=== PATIENT | female | born 1940 | race Caucasian/White ===

== ENCOUNTER 2016-07-31 08:07 | Day surgery (SDC) | payer MEDICARE ==
[~2016-07-31] VITALS: Ht 167.6 cm; Wt 75.0 kg
[~2016-07-31 08:07] MED LIST: ASPI325T32 PO; CYAN1TAB42 PO; CYCL1DRO OP; FLAX100038 PO; GLUC-123 PO; KEN25CR EXT; KETO5DRO60 OP; KLO1T PO; LEVO50TA83 PO; MULT-1018 PO; OMEP40CA36 PO; PRE625 PO; SERT25TA6 PO; SIMV20TA4 PO; TRIA1CAP5 PO; [UNRECOGNIZED DRUG - CODE] PO
[2016-07-31] MEDS ORDERED: Dexamethasone 4 mg/mL Inj ONE (08:08)
[2016-07-31] MEDS ORDERED: Propofol 10,000 mCg/mL 20 mL Inj ONE (08:08)
[2016-07-31] MEDS ORDERED: fentaNYL-PF 50 mCg/mL 2 mL Inj ONE (08:08)
[2016-07-31] MEDS ORDERED: Ondansetron 2 mg/mL 2 mL Inj ONE (08:08)
[2016-07-31] MEDS: Lactated Ringer's 1,000 ML IV SCH ×2 (08:16→10:03)
[2016-07-31 08:36] VITALS: BP 117/63; PULSE 56; RESP 15; O2SAT 94
[2016-07-31] MEDS ORDERED: HYDROcodone-APAP 5-325 mg Tablet PO PRN (09:25)
--- NOTE | 2016-07-31 10:03 | PCM.HPANE ---
Patient Data Date of Service: Jul 31, 2016 Surgeon Admitting Provider: Attending Provider:Ye Mena DO Primary Care Physician:Carine Murrell MD Other Provider:Berna West Anesthesia Reason for Visit Left Forearm Soft Tissue Mass Ht/WT & BMI Height (Feet): 5 Height (Inches): 6 Weight (Kilograms): 75 Body Mass Index 26.00 Allergies Coded Allergies: Sulfa (Sulfonamide Antibiotics) (Verified Allergy, Intermediate, HIVES, 06/29/15) Past Anesthesia History Anesthesia History: Denies:: Abnormal Airway, Anesthesia Reactions, Difficult Intubation, Fam Anesthesia Reaction, Fam Malignant Hypertherm, Malignant Hyperthermia Diabetes History Hx Diabetes?: No MRSA MRSA: No Medications Blood Thinner: Aspirin Hypertension Medication: Yes Home Meds Incl Beta Thi: Yes Date Beta Thi Taken: Jul 31, 2016 Time Beta Thi Taken: 0700 Reported Medications Triamterene/HCTZ 37.5-25 mg 1 Each Capsule0.5 PO DAILY Ref 0 07/27/16 Triamcinolone Acet (Triamcinolone Acetonide Cream)1 Applic/0.25 Gm Cr1 Applic EXT BID PRN skin irritation #60 GM Ref 0 07/27/16 Levothyroxine (Synthroid)50 Mcg Mdsgsm48 Mcg PO DAILY Ref 0 07/27/16 Simvastatin 20 Mg Qeuedk65 Mg PO HS Ref 0 07/27/16 Sertraline HCl (Sertraline)25 Mg Zghfvx84 Mg PO DAILY 30 Days Ref 0 07/27/16 Cyclosporine (Restasis)1 Each Droperette2 Each OP DAILY 07/27/16 Estrogens Conjugated (Premarin)0.625 Mg Tablet0.625 Mg PO Q2DAY 30 Days Ref 0 07/27/16 Omeprazole 40 Mg Capsule.dr40 Mg PO DAILY Ref 0 07/27/16 Multivitamin (Multi Vitamin Daily)1 Each Tablet1 Each PO DAILY 30 Days Ref 0 07/27/16 Ketotifen Fumarate 5 Ml Drops5 Ml OP BID PRN allergy sx 07/27/16 Propranolol ER (Inderal LA)160 Mg Jjqknto625 Mg PO DAILY 07/27/16 Gluc/Jeremiah-MSM#2/C/D3/Lalo/Born (Pmkaejdtfs-Eeclnbrvflc-ELQ Tab)1 Each Tablet1 Each PO DAILY 07/27/16 Cyanocobalamin/Folic Acid (Vitamin H66-Riyor Acid Tablet)1 Each Tablet1 Each PO DAILY 07/27/16 Flaxseed Oil ([place]-3 Flaxseed Oil)1,000 Mg Capsule1,000 Mg PO DAILY 07/27/16 Clonazepam 1 Mg Tablet1 Mg PO HS Ref 0 07/27/16 Aspirin 325 Mg Tpfdlz544 Mg PO DAILY #1 BOTTLE 07/27/16 Discontinued Reported Medications [eye drops] No Conflict CheckUnknown Dose OP DAILY 06/30/14 Triamterene/HCTZ 37.5-25 mg 1 Each Capsule1 Each PO DAILY 30 Days Ref 0 06/30/14 Cyanocobalamin/Folic Acid (Vitamin F06-Vsven Acid Tablet)1 Each Tablet1 Each PO DAILY 06/29/14 Triamcinolone Acetonide 60 Ml Lotion1 Applic TOP BID #60 ML Ref 0 06/29/14 Levothyroxine (Synthroid)50 Mcg Sxdodg08 Mcg PO DAILY 30 Days Ref 0 06/29/14 Simvastatin 20 Mg Yvfxik29 Mg PO HS 30 Days Ref 0 06/29/14 Cyclosporine (Restasis)1 Each Droperette2 Each OP BID 06/29/14 Estrogens Conjugated (Premarin)0.625 Mg Tablet0.625 Mg PO DAILY 30 Days Ref 0 06/29/14 Omeprazole (Prilosec)40 Mg Capsule.dr40 Mg PO DAILY 30 Days Ref 0 06/29/14 Multivitamin with Minerals (Multiple Vitamin)1 Each Tablet1 Each PO DAILY 06/29/14 Propranolol ER (Inderal LA)80 Mg Cap.sa.69d744 Mg PO DAILY 60 Days Ref 0 06/29/14 Gluc Rivera/Chondro Rivera A/Vit C/Mn (Glucosamine Chondroitin Tab)1 Each Tablet1 Each PO DAILY 06/29/14 Flaxseed (Flaxseed Oil)1,000 Mg Capsule1,000 Mg PO DAILY 06/29/14 Clonazepam 1 Mg Tab1 Mg PO HS PRN For Anxiety 30 Days Ref 0 06/29/14 Aspirin 325 Mg Tablet.dr325 Mg PO DAILY #1 BOTTLE Ref 0 06/29/14 Discontinued Scripts Clonazepam 1 Mg Tablet1 Mg PO HS PRN For Anxiety #10 TABLET Ref 0 Prov:Matt Oates MD 07/14/15 History HEENT History: Positive for:: Dysphagia Denies:: Abnormal Airway Difficult Intubation Hearing Problem Hx of Heart Problems?: Yes Cardiovascular History: Positive for:: Hypertension Denies:: AICD Atrial Fibrillation Chest Pain Congestive Heart Failure Pacemaker Valvular Heart Disease Hx of Respiratory Problem?: No Respiratory History: Positive for:: Use of C-PAP Machine Denies:: Asthma COPD Emphysema Oxygen Administration Pneumonia Tuberculosis Use of Inhalers / NEBS Hx Neurologic Problems?: Yes Neurological History: Positive for:: CVA Seizures (isolated seizure 2005) TIA Denies:: Dementia Other Neurological Pertinent: restless leg syndrome Hx of GI Problems?: Yes Gastrointestinal History: Positive for:: Gastroesphageal Reflux (gastric polyposis) Hiatal Hernia Denies:: Cirrhosis Diverticulitis Rectal Bleeding Hx of Problems?: Yes Female Hx: Denies:: Currently Skin History: Positive for:: History Skin Disorders? (shingles 15 years ago) Hx Musculoskeletal Problems?: Yes Musculoskeletal History: Positive for:: Musculoskeletal Trauma (left forearm soft tissue mass 1.5cm) Denies:: Fibromyalgia Joint Replacement Psycho Social History: Positive for:: Anxiety Hx Depression Hx Surgeries?: Yes (HYSTERECTOMY, BLADDER, VEINS, ) Hx Any Other Health Problems?: Yes Other History: Positive for:: Cancer (hx melanoma, BCC) Denies:: Thyroid Disease Hx Diabetes: No Hx Alcohol Use: YesHx Substance Use: No Smoking Status: Never Smoker Have You Smoked inLast 12 mo: No Stop/Bang Treated for Sleep Apnea?: Yes Do You Have a CPAP Machine?: Yes S-Snoring: Do You Snore Loudly: No T-Tired: feel tired, fatigued: No O-Obsered: Observed not breath: No P-Blood Pressure: treated: Yes B- Body Mass Index > 35 kg/m2: No A- Age over 50: Yes N- Neck Large Circumference: No G- Gender Male: No ADRIANE Total Score: 2 Risk Assessment Category Category 1A: Patient has history of documented sleep apnea, and HAS NOT received any narcotic, sedative or anesthesia administration during this stay. Category 1B: Patient has history of documented sleep apnea, and HAS received any narcotic , sedative or anesthesia administration during this stay Category 2: Patient has SUSPECTED Obstructive Sleep Apnea, and HAS received any narcotic , sedative or anesthesia administration during this stay. Category 3: Patient has SUSPECTED Obstructive Sleep Apnea and HAS NOT received narcotic, sedative or anesthesia administration during this stay. Category 4: Outpatient in Procedural Areas with known sleep apnea or who screen positive for High Risk via the STOP/BANG questionnaire. Exam Exam Vital Signs Vital Signs Date Time Temp Pulse Resp B/P Pulse Ox O2 Delivery O2 Flow Rate FiO2 07/31/16 08:38 CPAP/BIPAP 07/31/16 08:36 36.3 56 15 117/63 94 Room Air General Appearance: Alert, Oriented X3, Cooperative, No Acute Distress HEENT/AIRWAY: MP 2 Lungs: Normal Air Movement Heart: Exam Unremarkable Meds/Labs/Diagnostics Admission Meds Current Medications Lactated Ringer's (Lr) 1,000 ml @ 120 mls/hr Q8H20M IV Last administered on t 08:16; Start 07/31/16 at 05:00; Stop 07/31/16 at 13:19 Plan Impression Patient chart reviewed, patient interviewed and anesthestic plan with risks, benefits, and alternatives discussed, and informed consent obtained. NPO Status: 212907/30/16 ASA Physical Status: ASA2 Mod Systemic Disease Anesthetic Plan: MAC Bene/Risks/Altern/Consents: Yes HP Complete Prior to Induction: Yes Low Liu MD Jul 31, 2016 09:39
[2016-07-31] MEDS ORDERED: MetoCLOpramide 5 mg/mL 2 mL Inj IVPUSH PRN (10:15)
[2016-07-31] MEDS ORDERED: Lactated Ringer's 500 ML IV PRN (10:15)
[2016-07-31] MEDS ORDERED: Lactated Ringer's 1,000 ML IV SCH (10:15)
[2016-07-31] MEDS ORDERED: Labetalol 5 mg/mL 4 mL Inj IV PRN (10:15)
[2016-07-31] MEDS ORDERED: Phenylephrine 10,000 mCg/mL Inj IVPUSH PRN (10:15)
[2016-07-31] MEDS ORDERED: Atropine 0.4 mg/mL Inj IVPUSH PRN (10:15)
[2016-07-31] MEDS ORDERED: Dexamethasone 4 mg/mL Inj IVPUSH PRN (10:15)
[2016-07-31] MEDS ORDERED: fentaNYL-PF 50 mCg/mL 2 mL Inj IVPUSH PRN (10:15)
[2016-07-31] MEDS ORDERED: EPHEDrine Sulfate 50 mg/mL Inj IVPUSH PRN (10:15)
[2016-07-31] MEDS ORDERED: HYDROmorphone 1 mg/mL Inj IVPUSH PRN (10:15)
[2016-07-31] MEDS ORDERED: Ondansetron 2 mg/mL 2 mL Inj IVPUSH PRN (10:15)
[2016-07-31] MEDS ORDERED: Lidocaine 1%-Epi 1:100,000 20 mL Inj INFILTRATE ONE (10:18)
[2016-07-31 10:30] VITALS: BP 94/46; PULSE 60; RESP 14; O2SAT 96
[2016-07-31 10:35] VITALS: BP 97/51; PULSE 58; RESP 13; O2SAT 93
[2016-07-31 10:40] VITALS: BP 93/52; PULSE 62; RESP 16; O2SAT 96
--- NOTE | 2016-07-31 10:47 | PCM.ANEP2 ---
Post Anesthesia Evaluation ASA/CMS Post Anesthesia Date of Service: Jul 31, 2016 VS in Patient's Normal Range?: Yes Resp Stable; Airway Patent?: Yes CV Function & Hydration Stable: Yes Mental Status Recovered?: Yes Pain control Satisfactory?: Yes N/V Control Satisfactory?: Yes Low Liu MD Jul 31, 2016 10:47
--- NOTE | 2016-07-31 10:47 | PCM.ANEP1 ---
Post Anesthesia Phase 1 PACU Phase 1 Assessment Date of Service: Jul 31, 2016 Vital Signs Vital Signs Date Time Temp Pulse Resp B/P Pulse Ox O2 Delivery O2 Flow Rate FiO2 07/31/16 10:40 62 16 93/52 96 Room Air 07/31/16 10:35 58 13 97/51 93 Room Air 07/31/16 10:30 37.0 60 14 94/46 96 Room Air 07/31/16 08:38 CPAP/BIPAP 07/31/16 08:36 36.3 56 15 117/63 94 Room Air Anesthetic Administered: MAC Level of Alertness: Awake, talking BOYD's with Equal Strength: Yes Pain: No Nausea or Vomiting: No Oxygen Delivery: Room Air Lungs: Normal Air Movement Low Liu MD Jul 31, 2016 10:47
[2016-07-31 11:13] VITALS: BP 106/53; PULSE 65; RESP 15; O2SAT 96
--- NOTE | 2016-07-31 20:24 | OP ---
[address] [address] OPERATIVE REPORT PATIENT: MIRIAN ALAN : 1940 MR#: [id number] ADMIT: 07/31/2016 JOB ID: [id number] DATE OF SURGERY: 07/31/2016 PREOPERATIVE DIAGNOSIS(ES): Left forearm soft tissue mass. POSTOPERATIVE DIAGNOSIS(ES): Left forearm soft tissue mass. PROCEDURE: Excision of left forearm soft tissue mass measuring 1 cm in diameter which was subcutaneous. SURGEON: Ye Mena DO. ANESTHESIA: Monitored anesthesia care with local. HISTORY: The patient is a pleasant 75-year-old female, longstanding history of left soft tissue forearm mass. The mass was painful when she rested her forearms on any hard surface. She discussed having this excised. She understood the risks include, but are not limited to, neurovascular injury, tendon injury, infection, failure to resolve the patient's preoperative symptoms, recurrence, stiffness, persistent pain all which may require further intervention. The patient had all questions answered. Consent was signed and placed in the chart. PROCEDURE IN DETAIL: The patient was brought to the operative suite and placed supine on the operating room table. Surgical time-out performed. Everyone in the room was in agreement. After appropriate anesthesia was obtained, a left upper arm tourniquet was applied, and the left upper extremity was prepped and draped in a sterile fashion. Left upper extremity was approached with a longitudinal incision directly overlying the mass. Subcutaneous tissues were dissected with bipolar electrocautery utilized to maintain hemostasis throughout the procedure. The mass was identified. It measured approximately 1 cm in diameter and it was found just below the subcutaneous fat. 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 This was freed up from the surrounding soft tissues and sent in its entirety to Pathology for further identification. Copious irrigation was then performed followed by closure of skin with 4-0 nylon in a simple interrupted fashion. The patient was then placed in a bulky soft dressing. ESTIMATED BLOOD LOSS: Less than 1 cc. COMPLICATIONS: None. DISPOSITION: The patient tolerated the procedure well. Anesthesia was reversed. The patient was transferred back to Recovery. SPECIMENS: Left forearm soft tissue mass measuring 1 cm in diameter. POSTOPERATIVE PLAN: The patient will follow up in the office in two weeks. I will remove the patient's sutures at that time and start her working on range of motion and scar mobilization.
--- NOTE | 2016-08-01 13:49 | PATH ---
SURGICAL PATHOLOGY Attending Physician:Ye Mena MD CASE STATUS: Signed Out PATIENT NAME: MIRIAN ALAN PID: [id number] : 1940 DATE COLLECTED:07/31/2016 16:37 SPECIMEN: Mass, NOS CLINICAL HISTORY: LEFT FOREARM SOFT TISSUE MASS 1.FOREARM MASS FINAL DIAGNOSIS: Soft Tissue Mass, Left Forearm: Dilated vein with recent blood clot (varix). No evidence of malignancy. ICD10: D48.5 GROSS DESCRIPTION: The specimen is received in one formalin filled container labeled with the patient's name, sublabeled "forearm mass" and consists of 2 ramírez-butler portions of tissue which aggregate to 1.0 x 0.7 x 0.6 CM. The specimen is inked, sectioned into 4 total pieces and entirely submitted in one cassette. 07/31/2016 [facility] ICD-9 CODES: CPT CODES: 1: 63023 Electronically Signed Out Hussein Silverio MD [facility] Pathology [facility] [address], [place] [address] Technical component performed at [facility], [address], [place], [address]
== END 2016-07-31 23:59 | disposition home or self-care (01) ==
LOC: SAS 08:07
PROVIDERS: ATTEND Orthopaedic Surgery
DX: D48.5 Neoplasm of uncertain behavior of skin (principal); I10 Essential (primary) hypertension; E78.5 Hyperlipidemia, unspecified; G25.81 Restless legs syndrome; E03.9 Hypothyroidism, unspecified; G47.33 Obstructive sleep apnea (adult) (pediatric); K44.9 Diaphragmatic hernia without obstruction or gangrene; F41.9 Anxiety disorder, unspecified; F32.9 Major depressive disorder, single episode, unspecified; K21.9 Gastro-esophageal reflux disease without esophagitis; Z85.828 Personal history of other malignant neoplasm of skin; Z79.82 Long term (current) use of aspirin; Z86.73 Personal history of transient ischemic attack (TIA), and cerebral infarction without residual deficits

== ENCOUNTER 2016-10-14 11:03 | Inpatient (IN) | payer MEDICARE ==
[~2016-10-14] VITALS: Ht 167.6 cm; Wt 74.1 kg
[2016-10-14 11:07] VITALS: BP 101/62; PULSE 74; RESP 18; O2SAT 96
--- NOTE | 2016-10-14 11:36 | ED.REPORT ---
HPI-Abd Pain F 40 and Over Date of Service Oct 14, 2016 ED Provider: Job Bacon MD A 75 year old female with a history of hypertension presents to the ED complaining of shaking chills that began 2 days ago. She was recently diagnosed with a UTI at Urgent Care and has been taking Keflex as directed. At , her temp. was recorded at 100F. She is currently complaining of abdominal pain, myalgias, dizziness, lightheadedness, and a non-productive cough that began shortly after the antibiotic. She also reports mild diarrhea that is chronic. Recent UTI symptoms include dysuria that have resolved with the antibiotics. She denies any fever, nausea, or vomiting associated with the UTI. Her current medication list includes on Lisinopril for her hypertension, sertraline and clonazepam for her seizures. Nursing Notes Stated Complaint: POSS BLADDER INFECTION,LOW BLOOD PRESSURE Chief Complaint: Female Abdominal Pain Nursing Notes Reviewed: Yes Allergies: Coded Allergies: Sulfa (Sulfonamide Antibiotics) (Verified Allergy, Intermediate, HIVES, 06/29/15) cephalexin (Verified Allergy, Unknown, hives/itching, 10/14/16) Scheduled Aspirin (Aspirin) 325 Mg Tablet 325 MG PO DAILY Clonazepam (Clonazepam) 1 Mg Tablet 1 MG PO HS Cyanocobalamin/Folic Acid (Vitamin N84-Kqwss Acid Tablet) 1 Each Tablet 1 EACH PO DAILY Cyclosporine (Restasis) 1 Each Droperette 2 EACH OP DAILY Estrogens Conjugated (Premarin) 0.625 Mg Tablet 0.625 MG PO Q2DAY Flaxseed Oil ([place]-3 Flaxseed Oil) 1,000 Mg Capsule 1,000 MG PO DAILY Gluc/Jeremiah-MSM#2/C/D3/Lalo/Born (Btyskbdsml-Pfccwumlcnr-RSX Tab) 1 Each Tablet 2 EACH PO DAILY Levothyroxine (Synthroid) 50 Mcg Tablet 50 MCG PO DAILY Multivitamin (Multi Vitamin Daily) 1 Each Tablet 1 EACH PO DAILY Omeprazole (Omeprazole) 40 Mg Capsule.dr 40 MG PO DAILY Propranolol ER (Inderal LA) 160 Mg Capsule 160 MG PO DAILY Sertraline HCl (Sertraline) 25 Mg Tablet 50 MG PO DAILY Simvastatin (Simvastatin) 20 Mg Tablet 20 MG PO HS Triamterene/HCTZ 37.5-25 mg (Triamterene/HCTZ 37.5-25 mg) 1 Each Capsule 0.5 PO DAILY Scheduled PRN Ketotifen Fumarate (Ketotifen Fumarate) 5 Ml Drops 5 ML OP BID PRN PRN allergy sx Triamcinolone Acet (Triamcinolone Acetonide Cream) 1 Applic/0.25 Gm Cr 1 APPLIC EXT BID PRN PRN skin irritation General Time Seen by MD: 11:31 Chief Complaint Other (Shaking Chills ) Hx Obtained From: Patient Arrived By: Walk-in Sudden in Onset?: No Onset Occurred: 2 days ago Symptom Duration: Since onset Progression since Onset: Unchanged Location: : Diffuse Quality: Painful Radiation: : Does not radiate Severity: Current: Mild Severity: Maximum: Mild Associated with: Reports: Chills, Dysuria, Fever (subjective ), Denies: Vomiting Pertinent Negative: Pt denies other symptoms Recent Healthcare: No recent hospitalization, Recent doctor visit Risk Factors )( AAA Risk Stratification Risk factors reviewed Past Medical History Past Medical History Hypertension C-PAP Gastroesphageal Reflux Hiatal Hernia Seizures Anxiety Depression Past Surgical History Complete Hysterectomy Vascular surgery for LE varicosities Bladder Sling Smoking History Never Smoker Social History Alcohol Use: Denies alcohol use Drug Use: Denies drug use Other Social History: Good social support, Ambulatory Status Independent Review of Systems Constitutional: Reports: Chills, Denies: Fever Respiratory: Reports: Non-productive cough GI: Reports: Abdominal pain, Diarrhea, Nausea, Denies: Vomiting Female: Reports: Dysuria Musculoskeletal: Reports: Myalgia, Denies: Back pain Complete sys rev & neg: except as marked. Neurologic: Reports: Dizziness, Lightheaded Physical Exam Vital Signs Vital Signs (First) Date Time Temp Pulse Resp B/P Pulse Ox O2 Delivery O2 Flow Rate FiO2 10/14/16 11:07 36.9 74 18 101/62 96 Room Air Initial VS: Reviewed Head / Eyes: Atraumatic, Normocephalic, PERRL Neck: Supple, Non-tender, Full range of motion Extremities: Vascular intact, Neuro intact, No swelling, No tenderness Skin: Warm, Dry, No cyanosis Neurologic: Alert, Oriented, Nonfocal Psychiatric: Mood/affect normal, Behavior normal, Normal thought content General/Constitutional: Awake, Alert, No acute distress, Well appearing, Well developed Respiratory / Chest: Atraumatic, Breath sounds NL, Breath sounds = bilat, No respiratory distress Cardiovascular: Heart rate NL, Regular rhythm, Heart sounds NL, No murmurs Abdomen: Atraumatic, Soft, No guarding, No rebound Tenderness/Guarding/Rebound: Positive: Tender suprapubic Back: Atraumatic, Inspection NL Interpretation & Diagnostics Lab Results Interpretation Result Diagram: 10/14/16 1200 10/14/16 1200 Test 10/14/16 12:00 White Blood Count 13.0th/mm3 (3.8-10.1) Red Blood Count 4.31mil/mm3 (3.90-5.20) Hemoglobin 12.6g/dL (12.0-15.6) Hematocrit 38.6% (35.0-46.0) Mean Corpuscular Volume 89.6fL (81-100) Mean Corpuscular Hemoglobin 29.2pg (27.0-35.0) Mean Corpuscular Hemoglobin Concent 32.6% (32.0-37.0) Red Cell Distribution Width 13.8% (12.3-15.4) Platelet Count 188bil/L (150-400) Neutrophils (%) (Auto) 88.5% (40-74) Lymphocytes (%) (Auto) 3.8% (14-46) Monocytes (%) (Auto) 5.6% (4-12) Eosinophils (%) (Auto) 1.8% (0-5) Basophils (%) (Auto) 0.1% (0-3) Urine Color Dark yellow (YELLOW) Urine Appearance Hazy (CLEAR,HAZY) Urine pH 5.0 (5.0-8.0) Urine Specific [place] 1.025 (1.003-1.035) Urine Protein 30mg/dL (NEG,TRACE) Urine Glucose (UA) Negativemg/dL (NEGATIVE) Urine Ketones Tracemg/dL (NEGATIVE) Urine Occult Blood Negative (NEGATIVE) Urine Nitrite Negative (NEGATIVE) Urine Bilirubin Negative (NEGATIVE) Urine Urobilinogen Normalmg/dL (NORMAL) Urine Leukocyte Esterase Trace (NEGATIVE) Urine RBC 0-2/hpf (0-2) Urine WBC 6-10/hpf (0-5) Urine Epithelial Cells Moderate/hpf (NONE-MOD) Urine Crystals None seen (NONE SEEN) Urine Bacteria Few/hpf (NONE-FEW) Urine Hyaline Casts None/lpf (NONE) Urine Granular Casts None seen (NONE SEEN) Urine Waxy Casts None seen (NONE SEEN) Urine Red Blood Cell Casts None seen (NONE SEEN) Urine White Blood Cell Casts None seen (NONE SEEN) Urine Mucus None seen (None Seen) Urine Trichomonas None seen (NONE SEEN) Urine Yeast None (NONE SEEN) Urinalysis Comment None Urine Culture Reflexed Indicated Sodium Level 138mEq/L (134-144) Potassium Level 3.0mEq/L (3.5-5.2) Chloride Level 99mEq/L (97-108) Carbon Dioxide Level 22mmol/L (18-29) Blood Urea Nitrogen 35mg/dL (8-27) Creatinine 2.19mg/dL (0.57-1.00) Estimat Glomerular Filtration Rate 31mL/min (>59) Glucose Level 121mg/dL (60-99) Lactic Acid Level 1.4mmol/L (0.4-2.0) Calcium Level 8.8mg/dL (8.5-10.1) Magnesium Level 1.5mg/dL (1.6-2.6) Total Bilirubin 1.1mg/dL (0.0-1.2) Aspartate Amino Transf (AST/SGOT) 18U/L (0-50) Alanine Aminotransferase (ALT/SGPT) 13U/L (0-32) Alkaline Phosphatase 95U/L (25-165) Total Protein 7.2g/dL (6.4-8.4) Albumin 3.8g/dL (3.4-5.0) Lipase 36U/L (13-60) Re-Eval/Medical Decision Med Decision/Clinical Course 75-year-old female with UTI and acute kidney injury. Discussed with patient and she prefers admission. IV antibiotics given Zosyn. 2 L normal saline given. Minute hospitalist. Re-Evaluation/Progress : Time of Eval: 12:47 Patient Status: Condition improved Re-Evaluation/Progress Note: Patient is rechecked. She is informed of her results and diagnosis. She is offerred admission. All questions are addressed and she agrees with the plan to admit after being informed of the risks. Consultation : Referral / Consult Name: Low Love MD Consulted With: Hospitalist Call Returned at: 14:18 Lead Investigator: Will see patient, Agrees with eval, Agrees with plan, Accepts admit Counseled Regarding: Diagnosis, Lab results, Need for admission Discharge & Departure Primary Impression: Urinary tract infection Urinary tract infection type: site unspecified Hematuria presence: without hematuria Qualified Code: N39.0 - Urinary tract infection, site not specified Additional Impression: Acute kidney injury Disposition: ADMITTED TO HOSPITAL Discharge Condition All VS Reviewed: Yes Condition: Stable Referrals: Carine Murrell MD (PCP) Alhaji Attestation Portions of this note were transcribed by Roxane Myrick. I, Dr. Bacon personally performed the history, physical exam and medical decision-making; I reviewed and confirmed the accuracy of the information in the transcribed note. Signed by: Alhaji Cardozo, 10/14/16 1418. copies to: Carine Murrell MD, Ben M MD Oct 14, 2016 11:36 ROXANE MYRICK Oct 14, 2016 12:40
[2016-10-14 12:23] LABS: BASOPHILS % (AUTO) 0.1 % (0-3); EOSINOPHILS % (AUTO) 1.8 % (0-5); MONOCYTES % (AUTO) 5.6 % (4-12); Mean Corpuscular Hemoglobin 29.2 pg (27.0-35.0); Mean Corpuscular Volume 89.6 fL (81-100); NEUTROPHILS % (AUTO) 88.5 % (40-74); Platelet Count 188 bil/L (150-400)
[2016-10-14] MEDS ORDERED: cefTRIAXone Inj 1,000 MG in Dextrose 5% Minibag Plus 50 ML IV ONE (12:45)
[2016-10-14 12:47] LABS: Magnesium 1.5 mg/dL (1.6-2.6)
[2016-10-14 13:18] LABS: APPEARANCE,URINE HAZY (CLEAR,HAZY); COLOR,URINE DARK YELLOW (YELLOW); OCCULT BLOOD,URINE NEGATIVE (NEGATIVE); UROBILINOGEN,URINE NORMAL (NORMAL)
[2016-10-14] MEDS ORDERED: 0.9% Sodium Chloride 1,000 ML IV ONE ×2 (13:30→14:10)
[2016-10-14] MEDS ORDERED: Piperacillin-Tazo 3.375 Gm Inj 3.375 GM in Dextrose 5% Minibag Plus 50 ML IV ONE (14:10)
[2016-10-14] MEDS ORDERED: Alum-Mag Hydrox-Simeth 30 mL Suspension PO PRN (14:20)
[2016-10-14] MEDS ORDERED: cefTRIAXone Inj 2,000 MG in Dextrose 5% Minibag Plus 50 ML IV SCH (14:20)
[2016-10-14] MEDS ORDERED: Ondansetron 2 mg/mL 2 mL Inj IVPUSH PRN (14:20)
[2016-10-14] MEDS ORDERED: Polyethylene Glycol (PEG) 17 Gm Powder PO PRN (14:20)
--- NOTE | 2016-10-14 15:15 | NUR ---
Arrived on Unit Patient arrived on floor from ER via stretcher in stable condition. Patient ambulated from stretcher to bed with no issues. VSS. A&Ox3. Denies pain and nausea at this time. Admit and Med Rec completed. Patient orientated to room, call light, bed, visiting hours, and calling staff prior to ambulating. Family at bedside. Call light and tray table within reach. Will continue to monitor patient hourly.
[2016-10-14 15:22] VITALS: BP 89/56; PULSE 77; RESP 18; O2SAT 96
[2016-10-14] MEDS ORDERED: Magnesium Sulf 4 Gm/100 mL H2O 4 GM in IV Premix 1 EACH IV ONE (17:50)
[2016-10-14] MEDS ORDERED: Ketotifen 0.025% 5 mL Ophthalmic Solution BOTH_EYES PRN (17:50)
[2016-10-14] MEDS: 0.9% NaCl + KCl 20 mEq/L 1,000 ML IV SCH (18:19)
--- NOTE | 2016-10-14 18:49 | DRSVH ---
PROCEDURE: X-RAY CHEST, TWO VIEWS ([id number]) INDICATIONS: Possible Infiltrate TECHNIQUE: 2 views of the chest were acquired. COMPARISON: None. FINDINGS: Surgical changes and devices: None. Lungs and pleura: A small hyperdense nodular density projects to the right apex superimposed on the anterior right first rib. No pleural effusions or pneumothorax. Lungs are clear. Mediastinum: Mediastinal contours are normal. Heart size is normal. Bones and chest wall: No suspicious bony abnormalities. Soft tissues appear unremarkable. IMPRESSION: 1. No acute cardiopulmonary disease. 2. A small hyperdense nodular density in the right apex projecting to the anterior first rib. This ma y be a small granuloma or bone island. Dictated by: Payal Conway M.D. on 10/14/2016 at 18:46 Approved by: Payal Conway M.D. on 10/14/2016 at 18:48
[2016-10-14 19:33] VITALS: BP 98/61; PULSE 80; RESP 18; O2SAT 94
[2016-10-14] MEDS ORDERED: Artificial Tears 15 mL Ophthalmic Solution AFFECT_EYE PRN (20:05)
--- NOTE | 2016-10-14 21:22 | PCM.HPMED ---
Subjective Date of Service Oct 14, 2016 Primary Provider: Admitting Physician: Low Love MD Primary Care Physician: Carine Murrell MD Attending Physician: Low Love MD Chief Complaint: "Stomach pains, itching, diffuse redness and joint pain". History of Present Illness: The patient is a pleasant 75-year-old white female with history of hypertension who went to the [facility] urgent [place] complaining of shaking chills began 3 nights ago along with pain shooting up into her stomach from her bladder area. Patient has had this pain before and has recognized it as signs of urinary tract infection. She was diagnosed with tract infection at the urgent care center and was prescribed Keflex 500 mg 3 times a day. She took 1 dose on and Saturday and 3 on Saturday and one this morning with each dose she continued to have itching and redness of her skin along with abdominal pain, myalgias, dizziness, lightheadedness and nonproductive cough along with itching and redness and joint pain that started all after taking the Keflex antibiotics. Patient went back to the [facility] and her blood pressure was found to be 77/42 they repeated it several times and at no time was the systolic blood pressure over 80 patient was therefore sent to the emergency room at [facility] where she was evaluated by Dr. Job Bacon who determined that she likely was having a reaction to the Keflex medication and was also in renal failure as her previous creatinine had been normal and today's creatinine was 2.19 with a BUN of 35. Due to the patient's acute renal failure, leukocytosis, persistent urinary tract infection with pyuria and above symptoms patient was admitted to the hospitalist service for further evaluation and treatment. Review of Systems: General: Patient has been relatively healthy prior to this urinary tract infection. Patient has never had a reaction to an antibiotic like this before. However, she did have a rash after taking a sulfa based antibiotic. HEENT: Patient has had a mild headache, patient has no diplopia, patient has no changes in vision. Patient has no problems with their ears, nose or throat. Patient has no known dental problems. Patient has no pharyngitis or history of thrush. Neck: Patient has no stiffness in the neck. Patient has no lymphadenopathy. Patient has no other problems with their neck. Pulmonary: Patient has no shortness of breath, and no further cough, no expectoration of sputum. Patient has no pleurisy. Patient has no chest pain. Patient has no history of asthma or COPD. Cardiovascular: Patient has no chest pain. Patient has no history of heart murmur. Patient has no palpitations. Patient has no history of myocardial infarction. Patient has no history of coronary artery disease. Gastrointestinal: Patient has no history of hepatitis A, B or C. Patient has no history of peptic ulcer disease. Patient has a history of gastroesophageal reflux disease and a hiatal hernia. Patient also states that every year she has an endoscopy by a local safety administrator who she cannot remember the name of and has been told that she has "hundreds" of upper GI polyps. Patient has no history of nausea, vomiting, or diarrhea. Patient has no history of hematemesis, hematochezia, or melena. Patient has no history of colitis. Renal: Patient has no history of kidney disease. No history of kidney stones. Genitourinary: Patient has had dysuria after voiding which prompted her to seek medical attention. He has had bladder infections in the past prior to bladder sling surgery and she knows what it feels like. She has had no frequency, or incontinence. Patient has no previous history of genitourinary problems. Musculoskeletal: Patient has no history of muscular skeletal problems except some arthritis. 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 Neurologic: Patient has no history of stroke, no history of seizure, no history of TIA. Psychiatric: Patient has no history of psychiatric problems. The remainder of the entire review of systems was reviewed with patient and is as mentioned above otherwise negative. Allergies Coded Allergies: Sulfa (Sulfonamide Antibiotics) (Verified Allergy, Intermediate, HIVES, 06/29/15) cephalexin (Verified Allergy, Unknown, hives/itching, 10/14/16) Home Medications Scheduled Aspirin (Aspirin) 325 Mg Tablet 325 MG PO DAILY Clonazepam (Clonazepam) 1 Mg Tablet 1 MG PO HS Cyanocobalamin/Folic Acid (Vitamin L26-Ngwqh Acid Tablet) 1 Each Tablet 1 EACH PO DAILY Cyclosporine (Restasis) 1 Each Droperette 2 EACH OP DAILY Estrogens Conjugated (Premarin) 0.625 Mg Tablet 0.625 MG PO Q2DAY Flaxseed Oil ([place]-3 Flaxseed Oil) 1,000 Mg Capsule 1,000 MG PO DAILY Gluc/Jeremiah-MSM#2/C/D3/Lalo/Born (Wjvdxcstos-Sojrtqchlqd-JNZ Tab) 1 Each Tablet 2 EACH PO DAILY Levothyroxine (Synthroid) 50 Mcg Tablet 50 MCG PO DAILY Multivitamin (Multi Vitamin Daily) 1 Each Tablet 1 EACH PO DAILY Omeprazole (Omeprazole) 40 Mg Capsule.dr 40 MG PO DAILY Propranolol ER (Inderal LA) 160 Mg Capsule 160 MG PO DAILY Sertraline HCl (Sertraline) 25 Mg Tablet 50 MG PO DAILY Simvastatin (Simvastatin) 20 Mg Tablet 20 MG PO HS Triamterene/HCTZ 37.5-25 mg (Triamterene/HCTZ 37.5-25 mg) 1 Each Capsule 0.5 PO DAILY Scheduled PRN Ketotifen Fumarate (Ketotifen Fumarate) 5 Ml Drops 5 ML OP BID PRN PRN allergy sx Triamcinolone Acet (Triamcinolone Acetonide Cream) 1 Applic/0.25 Gm Cr 1 APPLIC EXT BID PRN PRN skin irritation PMH Hypertension, which is controlled with medication. Obstructive sleep apnea. Patient uses her C-PAP every night. Gastroesphageal Reflux Hiatal Hernia Seizures, patient has had 2 grand mal seizures once 11 days after retiring from work and she was not getting any sleep. The second one was after neighbor kids "stole her seizure pills" and after being off of her seizure medication for 1 week she had a seizure. Anxiety Depression Osteoarthritis Patient had rheumatic fever as a child and was told she had a murmur that went away over time. She does not believe that she was diagnosed with rheumatic heart disease. Surgical History Complete Hysterectomy with bilateral salpingo-oophorectomy Vascular surgery for LE varicosities Bladder Sling Bilateral cataract surgery [place] teeth removal 4 Tonsillectomy Family History Patient's father at a young age at 56. However, he smoked and drank and had COPD emphysema pneumonia. Patient mother at 93 due to complications of congestive heart failure. Patient has 1 sister who is healthy and one brother who is his knee other than recently being diagnosed with diabetes mellitus. Social History Hx Alcohol Use: Yes (patient rarely drinks alcohol) Hx Substance Use: No Hx Tobacco Use: No Smoking Status: Never Smoker Living Arrangement: with Family Additional Information Patient was born in [place] at [facility]. Patient went to [employer] and graduated. Patient after graduation got at the age of 19 and stayed to her first for 6 years. She had 3 children from her first . She then her Nasir and they have been now for 50 years. She is 4 para 3 and 1. Patient never smoked she did experience a lot of secondhand smoke as her father was a heavy smoker. She rarely drank alcohol and still rarely drinks it. 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 The patient suffered situational depression after her youngest son of a motor vehicle accident and one son committed surgery suicide and then a grandson in the [facility] [place] and his body was never found. Her depression has been exacerbated by her 's current neuromuscular disorder that has gone undiagnosed by more than one neurologist. He is also scheduled to have a nephrectomy tomorrow morning due to presumed renal cell carcinoma. Patient lives with her in [place]. Exam Vital Signs Vital Sign - Last Date Time Temp Pulse Resp B/P Pulse Ox O2 Delivery O2 Flow Rate FiO2 10/14/16 19:33 37.2 80 18 98/61 94 Room Air Exam General: Patient is in no apparent distress lying supine in bed. However, she will periodically scratch her arms as they are itching while I was interviewing her. HEENT: Head is atraumatic and normocephalic. Eyes: Pupils are equally round and reactive to light and accommodation. Extraocular muscles are intact. Sclera are white, anicteric. Subconjunctival mucosa is pink. Ears and nose are unremarkable. Oropharynx: There is no mucosal lesions, there is no thrush, there is no pharyngitis. Neck: Is supple, there are no nodes, or masses or tenderness. Chest: Is clear to auscultation and percussion. There are no rales, rhonchi, wheezes or rubs. Heart: Rate, rhythm is regular. There is a grade 1 to 2/6 systolic ejection murmur heard best at the left sternal border with no rub or gallop. Abdomen: Good bowel sounds are present. Abdomen is soft, nontender, no organomegaly or masses were appreciated. Extremities: Are symmetrical and well perfused. There is no edema, there is no cellulitis, no rash. However, her legs and arms are erythematous diffusely. Neurologic: There are no focal neurological deficits. Cranial nerves II through XII are intact. There are no sensory or motor deficits. Psychiatric: Patients mood is calm and she shows no sign of agitation. Genital: Deferred Rectal: Deferred Lab and Diagnostics Result Diagram: 10/14/16 1200 10/14/16 1200 Microbiology Blood and urine cultures are pending X-Rays, CTs and MRIs PROCEDURE: X-RAY CHEST, TWO VIEWS ([id number]) INDICATIONS: Possible Infiltrate TECHNIQUE: 2 views of the chest were acquired. COMPARISON: None. FINDINGS: Surgical changes and devices: None. Lungs and pleura: A small hyperdense nodular density projects to the right apex superimposed on the anterior right first rib. No pleural effusions or pneumothorax. Lungs are clear. Mediastinum: Mediastinal contours are normal. Heart size is normal. Bones and chest wall: No suspicious bony abnormalities. Soft tissues appear unremarkable. IMPRESSION: 1. No acute cardiopulmonary disease. 2. A small hyperdense nodular density in the right apex projecting to the anterior first rib. This may be a small granuloma or bone island. Dictated by: Payal Conway M.D. on 10/14/2016 at 18:46 Approved by: Payal Conway M.D. on 10/14/2016 at 18:48 Assessment & Plan The patient is a pleasant 75-year-old white female with history of hypertension who went to the [facility] urgent care center complaining of shaking chills began 3 nights ago along with pain shooting up into her stomach from her bladder area. Patient has had this pain before and has recognized it as signs of urinary tract infection. She was diagnosed with tract infection at the urgent care center and was prescribed Keflex 500 mg 3 times a day. She took 1 dose on 3 and Saturday and 3 on Saturday and one this morning with each dose she continued to have itching and redness of her skin along with abdominal pain, myalgias, dizziness, lightheadedness and nonproductive cough along with itching and redness and joint pain that started all after taking the Keflex antibiotics. Patient went back to the [place] urgent care center and her blood pressure was found to be 77/42 they repeated it several times and at no time was the systolic blood pressure over 80 patient was therefore sent to the emergency room at [facility] where she was evaluated by Dr. Job Bacon who determined that she likely was having a reaction to the Keflex medication and was also in renal failure as her previous creatinine had been normal and today's creatinine was 2.19 with a BUN of 35. Due to the patient's acute renal failure, leukocytosis, persistent urinary tract infection with pyuria and above symptoms patient was admitted to the hospitalist service for further evaluation and treatment. # Urinary tract infection, present at the time of admission. Active and partially treated with cephalexin 500 mg by mouth every 8 hours for 8 doses. - We will need to obtain urine culture results from the urgent care center at [place] - Zosyn was started in the emergency room and patient tolerated well. Therefore , we will continue. However, I explained to her that if her itching worsens with his next dose that she likely needs to switch to a quinolone antibiotic as she would then have documented allergies to sulfa, cephalosporins and penicillins. - We will check renal ultrasound to look for hydronephrosis or obstruction. # Drug reaction to cephalexin, presents time of admission. Active and ongoing with active diffuse erythematous rash and itching - Benadryl as needed - Would stop Zosyn if rash and itching worsened with next dose. - If Zosyn needs to be stopped due to allergy then would start either Cipro or Levaquin IV - Watch for further side effects under close observation. # Acute renal failure, presents time of admission. Active - Likely secondary to side effects of cephalexin. - The patient also likely has prerenal azotemia. - We will give IV hydration. # Leukocytosis, present admission. Active and secondary to above. - Continue to check daily CBC # Hypokalemia - We will add potassium to IV fluids - We will correct magnesium which will make it easier to correct potassium over the next couple of days. # Hypomagnesemia - We will replace today with IV magnesium sulfate 4 g IV over 4 hours - Recheck magnesium as needed. # Gastroesophageal reflux disease, present times admission. Active - Continue proton pump inhibitor as at home # History of seizures - Continue clonazepam at home # History of hypertension - We will hold hydrochlorothiazide triamterene due to dehydration and renal failure. - We will monitor blood pressure very closely. # Obstructive sleep apnea present time of admission. Active - Patient to wear CPAP mask brought from home by her . #Anxiety and depression - Continue Zoloft as at home. Disposition: As this patient will likely be here more than 2 midnights to evaluate and treat the above problems, the patient was admitted as an inpatient. Pain Evaluation: Adequate Pain Control GI Prophylaxis: Proton Pump Inhibitor VTE Prophylaxis: Sub-Q Enoxaparin Resuscitation Status: CPR: Attempt Resuscitation Low Love MD Oct 14, 2016 21:22
[2016-10-14] MEDS: Piper-Tazo 3.375 Gm/50 mL D5W Minibag Plus - Q8H over 4 hrs IV SCH ×2 (23:40)
[2016-10-15 01:43] VITALS: BP 95/63; PULSE 79; RESP 16; O2SAT 92
[2016-10-15 03:46] VITALS: BP 92/51; PULSE 74; RESP 18; O2SAT 91
[2016-10-15] MEDS: 0.9% NaCl + KCl 20 mEq/L 1,000 ML IV SCH ×2 (04:25→14:29)
[2016-10-15 05:01] LABS: BASOPHILS % (AUTO) 0 % (0-3); EOSINOPHILS % (AUTO) 2.6 % (0-5); MONOCYTES % (AUTO) 5.2 % (4-12); Mean Corpuscular Hemoglobin 28.9 pg (27.0-35.0); Mean Corpuscular Volume 89.9 fL (81-100); NEUTROPHILS % (AUTO) 82.3 % (40-74); Platelet Count 151 bil/L (150-400)
[2016-10-15 05:28] LABS: Magnesium 2.7 mg/dL (1.6-2.6)
--- NOTE | 2016-10-15 06:01 | NUR ---
Activity Pt up to BR SBA overnight. Pt stating some generalized weakness due to general malaise. Pt denies pain. Pt reported having some mild nausea that "comes and goes" and pt did not want to take any meds for this. IV Zosyn administered without any allergic symptoms noted. Pt reports previous itching has stopped.
[2016-10-15] MEDS: Piper-Tazo 3.375 Gm/50 mL D5W Minibag Plus - Q8H over 4 hrs IV SCH ×4 (07:20→14:39)
[2016-10-15] MEDS ORDERED: Propranolol LA 80 mg ER24 Capsule PO SCH (08:30)
[2016-10-15] MEDS ORDERED: CYCLOSPORINE SCH (08:30)
[2016-10-15] MEDS ORDERED: FLAXSEED OIL 1000 MG PO SCH (08:30)
[2016-10-15 08:37] VITALS: BP 92/45; PULSE 68; RESP 18; O2SAT 94
[2016-10-15] MEDS: Potassium Chloride 20 mEq SR Tablet PO SCH ×3 (08:42→21:25)
[2016-10-15] MEDS: Pantoprazole 40 mg ER24 Tablet PO SCH (08:42)
--- NOTE | 2016-10-15 12:06 | DRSVH ---
PROCEDURE: US RENAL SONOGRAM INDICATIONS: possible hydronephrosis TECHNIQUE: Real-time scanning was performed of the kidneys and bladder, with image documentation. COMPARISON: Abdomen ultrasound 05/14/2013 FINDINGS: Kidneys: Kidneys are normal in size. Right kidney measures 10.9 cm long; left kidney measures 11.4 cm long. Right renal cortical thickness is 1.2 cm; left renal cortical thickness is 1.2 cm. Renal c ortical echotexture is normal. No hydronephrosis or nephrolithiasis. No suspicious solid mass lesio ns. Left renal cortical cyst measures 0.9 x 1.0 x 1.2 cm. Bladder: Pre-void bladder volume is 322 mL. Post-void residual is 71 mL. Pre-void images demonstra te no intraluminal masses or stones. On pre-void images, both ureteral jets are noted with color Dop pler interrogation. (Of note, ureteral jets may not be detectable in up to 25% of cases due to insuf ficient differences in specific gravity between ureteral and bladder urine). Miscellaneous: No free pelvic fluid. IMPRESSION: 1. No hydronephrosis. 2. Small cyst in the anterior lower pole of the left kidney. 3. Moderate post void residual Dictated by: Justin Rahman M.D. on 10/15/2016 at 12:03 Approved by: Justin Rahman M.D. on 10/15/2016 at 12:04
[2016-10-15 13:07] VITALS: BP 94/59; PULSE 66; RESP 18; O2SAT 93
--- NOTE | 2016-10-15 13:53 | NUR ---
Evaluation completed. Please go to "Notes" then click on "Assessments and Notes" (bottom left corner of screen). Then select appropriate discipline tab on top of screen.
[2016-10-15] MEDS: diphenhydrAMINE 25 mg Capsule PO PRN ×2 (15:25→21:24)
--- NOTE | 2016-10-15 15:38 | NUR ---
Evaluation completed. Please go to "Notes" then click on "Assessments and Notes" (bottom left corner of screen). Then select appropriate discipline tab on top of screen.
--- NOTE | 2016-10-15 18:27 | NUR ---
Itching/Activity Pt experienced itching mostly to bilat UE, no redness noted, gave 25mg Benadryl PO which alleviated symptoms. OOB to BR multiple times this shift and ambulated hallway with family once this evening.
[2016-10-15 19:45] VITALS: BP 114/66; PULSE 66; RESP 17; O2SAT 95
--- NOTE | 2016-10-15 22:27 | PCM.PNMED ---
Subjective Date of Service Oct 15, 2016 Subjective The patient is feeling a little bit better today. She is still complaining of itching and received Benadryl today. She still has some abdominal discomfort but overall is better. She has no new complaints. She has no fever, no chills , no diaphoresis. Exam Vital Signs Vital Sign - Last Date Time Temp Pulse Resp B/P Pulse Ox O2 Delivery O2 Flow Rate FiO2 10/15/16 19:45 36.4 66 17 114/66 95 Room Air Intake and Output 10/14/16 10/14/16 10/15/16 Cumulative From/Thru 15:00 23:00 07:00 10/14/16 11:07 - 10/15/16 06:19 Intake Total 1000 ml 1697 ml 2697 ml Output Total 500 ml 500 ml Balance 1000 ml 1197 ml 2197 ml Intake Oral 625 ml 625 ml IV Total 1000 ml 1072 ml 2072 ml Output Urine Total 500 ml 500 ml # Bowel Movements 0 0 Exam General: Patient is in no apparent distress lying supine in bed. She is scratching less today and her skin is less erythematous today. HEENT: Head is atraumatic and normocephalic. Eyes: Pupils are equally round and reactive to light and accommodation. Extraocular muscles are intact. Sclera are white, anicteric. Subconjunctival mucosa is pink. Ears and nose are unremarkable. Oropharynx: There is no mucosal lesions, there is no thrush, there is no pharyngitis. Neck: Is supple, there are no nodes, or masses or tenderness. Chest: Is clear to auscultation and percussion. There are no rales, rhonchi, wheezes or rubs. Heart: Rate, rhythm is regular. There is a grade 1 to 2/6 systolic ejection murmur heard best at the left sternal border with no rub or gallop. Abdomen: Good bowel sounds are present. Abdomen is soft, nontender, no organomegaly or masses were appreciated. Extremities: Are symmetrical and well perfused. There is no edema, there is no cellulitis, no rash. Her legs and arms are less erythematous. Neurologic: There are no focal neurological deficits. Cranial nerves II through XII are intact. There are no sensory or motor deficits. Psychiatric: Patients mood is calm and she shows no sign of agitation. Genital: Deferred Rectal: Deferred Lab and Diagnostics Result Diagram: 10/15/16 0441 10/15/16 0441 Microbiology Blood and urine cultures are pending X-Rays, CTs and MRIs PROCEDURE: X-RAY CHEST, TWO VIEWS ([id number]) INDICATIONS: Possible Infiltrate TECHNIQUE: 2 views of the chest were acquired. COMPARISON: None. FINDINGS: Surgical changes and devices: None. Lungs and pleura: A small hyperdense nodular density projects to the right apex superimposed on the anterior right first rib. No pleural effusions or pneumothorax. Lungs are clear. Mediastinum: Mediastinal contours are normal. Heart size is normal. Bones and chest wall: No suspicious bony abnormalities. Soft tissues appear unremarkable. IMPRESSION: 1. No acute cardiopulmonary disease. 2. A small hyperdense nodular density in the right apex projecting to the anterior first rib. This may be a small granuloma or bone island. Dictated by: Payal Conway M.D. on 10/14/2016 at 18:46 Approved by: Payal Conway M.D. on 10/14/2016 at 18:48 Assessment & Plan The patient is a pleasant 75-year-old white female with history of hypertension who went to the [facility] urgent care center complaining of shaking chills began 3 nights ago along with pain shooting up into her stomach from her bladder area. Patient has had this pain before and has recognized it as signs of urinary tract infection. She was diagnosed with tract infection at the urgent care center and was prescribed Keflex 500 mg 3 times a day. She took 1 dose on and Saturday and 3 on Saturday and one this morning with each dose she continued to have itching and redness of her skin along with abdominal pain, myalgias, dizziness, lightheadedness and nonproductive cough along with itching and redness and joint pain that started all after taking the Keflex antibiotics. Patient went back to the [place] urgent care center and her blood pressure was found to be 77/42 they repeated it several times and at no time was the systolic blood pressure over 80 patient was therefore sent to the emergency room at [facility] where she was evaluated by Dr. Job Bacon who determined that she likely was having a reaction to the Keflex medication and was also in renal failure as her previous creatinine had been normal and today's creatinine was 2.19 with a BUN of 35. Due to the patient's acute renal failure, leukocytosis, persistent urinary tract infection with pyuria and above symptoms patient was admitted to the hospitalist service for further evaluation and treatment. # Urinary tract infection, present at the time of admission secondary to Escherichia coli pansensitive except for being intermediately susceptible to cephalothin. Active and partially treated with cephalexin 500 mg by mouth every 8 hours for 8 doses. - Zosyn was started in the emergency room and patient tolerated well. Therefore , we will continue today. However, her itching persist and we will need to switch to a quinolone antibiotic, as she would then have documented allergies to sulfa, cephalosporins and possibly penicillins. - We will check renal ultrasound to look for hydronephrosis or obstruction. # Drug reaction to cephalexin, presents time of admission. Active and ongoing with active diffuse erythematous rash and itching - Benadryl was needed today - We will switch Zosyn to Cipro this evening - Watch for further side effects under close observation. # Acute renal failure, presents time of admission. Active - Likely secondary to side effects of cephalexin. - The patient also likely has prerenal azotemia. - We will give IV hydration. # Leukocytosis, present admission. Active and secondary to above. - Continue to check daily CBC # Hypokalemia, present at the time of admission. Active and persistent - We will continue potassium in IV fluids - We have corrected magnesium which will make it easier to correct potassium over the next couple of days. - We will add oral potassium 3 times a day # Hypomagnesemia - We have corrected - Recheck magnesium as needed. # Gastroesophageal reflux disease, present times admission. Active - Continue proton pump inhibitor as at home # History of seizures - Continue clonazepam at home # History of hypertension - We will hold hydrochlorothiazide triamterene due to dehydration and renal failure. - We will monitor blood pressure very closely. # Obstructive sleep apnea present time of admission. Active - Patient to wear CPAP mask brought from home by her . #Anxiety and depression - Continue Zoloft as at home. Disposition: As this patient can use to have hypokalemia despite IV replacement patient will likely be here another 24-48 hours. Pain Evaluation: Adequate Pain Control GI Prophylaxis: Proton Pump Inhibitor VTE Prophylaxis: Sub-Q Enoxaparin VTE Mechanical Devices: Intermittant Pneumatic CD Resuscitation Status: CPR: Attempt Resuscitation Low Love MD Oct 15, 2016 22:27 Low Love MD Oct 15, 2016 22:27
[2016-10-15 23:55] VITALS: BP 107/68; PULSE 69; RESP 17; O2SAT 97
[2016-10-16] MEDS: 0.9% NaCl + KCl 20 mEq/L 1,000 ML IV SCH ×2 (00:37→09:50)
[2016-10-16 05:25] LABS: BASOPHILS % (AUTO) 0.3 % (0-3); EOSINOPHILS % (AUTO) 4.9 % (0-5); MONOCYTES % (AUTO) 9.5 % (4-12); Mean Corpuscular Hemoglobin 28.8 pg (27.0-35.0); Mean Corpuscular Volume 90.1 fL (81-100); NEUTROPHILS % (AUTO) 65.8 % (40-74); Platelet Count 162 bil/L (150-400)
[2016-10-16 05:50] LABS: Magnesium 2.1 mg/dL (1.6-2.6)
[2016-10-16 05:51] VITALS: BP 127/72; PULSE 71; RESP 16; O2SAT 95
--- NOTE | 2016-10-16 06:05 | NUR ---
Chest pain Pt reporting chest pain this morning as a "tightness, more painful than yesterday" pt says that the pain does not radiate and that it "could be acid reflux, but it has not hurt this bad before." Pt very anxious at this time. paged and received order for STAT EKG. Troponin labs pending this morning.
[2016-10-16] MEDS: Pantoprazole 40 mg ER24 Tablet PO SCH (10:13)
[2016-10-16] MEDS: Potassium Chloride 20 mEq SR Tablet PO SCH (10:13)
--- NOTE | 2016-10-16 10:55 | PCM.DIMED ---
Discharge Instructions Date of Service Oct 16, 2016 Dates of Hospitalization Oct 14, 2016 at 14:24 Discharge Diagnosis Discharge Diagnosis UTI secondary to E. coli with an adverse drug reaction to Keflex, with multiple side effects including Acute Renal Failure. Diet Discharge Diet: Heart Healthy Activity Discharge Activity: No restrictions (The patient may return to her usual activities gradually as tolerated.) Call your provider Call your provider for: Fever or Chills, Shortness of breath, Bleeding, Chest pain, Vomitting, Excessive diarrhea, Weakness (unilateral) Patient Instructions Follow-up Provider: Carine Murrell MD Follow-up with PCP in: 1 week Low Love MD Oct 16, 2016 10:55
[2016-10-16 10:56] VITALS: BP 164/75; PULSE 83; RESP 20; O2SAT 90
[2016-10-16] MEDS ORDERED: CIPR-231 PO (10:58)
--- NOTE | 2016-10-16 11:11 | NUR ---
KRIS Signed @ 1050AM
--- NOTE | 2016-10-16 11:58 | NUR ---
Social Work: Initial Assessment/Discharge D: EMR reviewed. Pt is a 75 y/o female admitted for UTI, ROSS per H&P. SANDRITA met with pt at bedside to conduct initial assessment. Pt was alert and oriented x3. SW explained role and wrote phone number on white board. Pt's insurance is [employer] and PCP is Carine Murrell MD. Pt gave verbal consent to contact spouse, Dov Bailon ([phone]) for discharge planning but noted that pt's spouse is also in the hospital at this time. SW confirmed pt has completed DPOA/advanced directive ppw and encouraged pt to provide a copy to the hospital. Pt has no hx of HH or a SNF. Pt does not have LTC insurance or VA benefits. Pt is independent with ADLs. Pt does not use any DME. Pt drives. Pt is independent at baseline. Pt lives with her spouse in a single-story home with 1-step to enter in [place]. Pt confirmed her sister or daughter will provide transport home today. Per MD, pt is medically stable and ready for discharge. SANDRITA does not anticipate any discharge needs at this time but will continue to follow if needs arise. A: Pt who is independent at baseline P: Pt confirmed her sister or daughter will provide transport home today. Per MD, pt is medically stable and ready for discharge. SANDRITA does not anticipate any discharge needs at this time but will continue to follow if needs arise. BLAKE Norris Addendum: 10/16/16 at 1158 by STEVEN OTERO Amended: Links added.
--- NOTE | 2016-10-16 16:06 | NUR ---
Discharge Patient discharged home. IV DC'd and intact. Patient teaching included antibiotic medications signs and symptoms of a reaction and when to take the next dose. Discharge instructions included following up with PCP in one week. and patient had no questions. Patient's daughter gathered all belongings. SPORTS TRAINER escorted patient out via W/C.
--- NOTE | 2016-10-16 23:11 | PCM.DC.MED ---
Discharge Summary Date of Service Oct 16, 2016 Dates of Hospitalization Date of Hospital Admission Oct 14, 2016 at 14:24 Date of Discharge: Oct 16, 2016 Providers: Admitting Physician: Low Love MD Primary Care Physician: Carine Murrell MD Attending Physician: Low Love MD Diagnosis at Time of Discharge Diagnosis at Time of Discharge UTI secondary to E. coli with an adverse drug reaction to Keflex, with multiple side effects including Acute Renal Failure. Procedures XRay, CTs & MRIs PROCEDURE: X-RAY CHEST, TWO VIEWS ([id number]) INDICATIONS: Possible Infiltrate TECHNIQUE: 2 views of the chest were acquired. COMPARISON: None. FINDINGS: Surgical changes and devices: None. Lungs and pleura: A small hyperdense nodular density projects to the right apex superimposed on the anterior right first rib. No pleural effusions or pneumothorax. Lungs are clear. Mediastinum: Mediastinal contours are normal. Heart size is normal. Bones and chest wall: No suspicious bony abnormalities. Soft tissues appear unremarkable. IMPRESSION: 1. No acute cardiopulmonary disease. 2. A small hyperdense nodular density in the right apex projecting to the anterior first rib. This may be a small granuloma or bone island. Dictated by: Payal Conway M.D. on 10/14/2016 at 18:46 Approved by: Payal Conway M.D. on 10/14/2016 at 18:48 Brief History The patient is a pleasant 75-year-old white female with history of hypertension who went to the [facility] complaining of shaking chills began 3 nights ago along with pain shooting up into her stomach from her bladder area. Patient has had this pain before and has recognized it as signs of urinary tract infection. She was diagnosed with tract infection at the urgent care center and was prescribed Keflex 500 mg 3 times a day. She took 1 dose on 3 and Saturday and 3 on Saturday and one this morning with each dose she continued to have itching and redness of her skin along with abdominal pain, myalgias, dizziness, lightheadedness and nonproductive cough along with itching and redness and joint pain that started all after taking the Keflex antibiotics. Patient went back to the [facility] and her blood pressure was found to be 77/42 they repeated it several times and at no time was the systolic blood pressure over 80 patient was therefore sent to the emergency room at [facility] where she was evaluated by Dr. Job Bacon who determined that she likely was having a reaction to the Keflex medication and was also in renal failure as her previous creatinine had been normal and today's creatinine was 2.19 with a BUN of 35. Due to the patient's acute renal failure, leukocytosis, persistent urinary tract infection with pyuria and above symptoms patient was admitted to the hospitalist service for further evaluation and treatment. Hospital Course The patient is a pleasant 75-year-old white female with history of hypertension who went to the [facility] urgent care center complaining of shaking chills began 3 nights ago along with pain shooting up into her stomach from her bladder area. Patient has had this pain before and has recognized it as signs of urinary tract infection. She was diagnosed with tract infection at the urgent care center and was prescribed Keflex 500 mg 3 times a day. She took 1 dose on and Saturday and 3 on Saturday and one this morning with each dose she continued to have itching and redness of her skin along with abdominal pain, myalgias, dizziness, lightheadedness and nonproductive cough along with itching and redness and joint pain that started all after taking the Keflex antibiotics. Patient went back to the [facility] and her blood pressure was found to be 77/42 they repeated it several times and at no time was the systolic blood pressure over 80 patient was therefore sent to the emergency room at [facility] where she was evaluated by Dr. Job Bacon who determined that she likely was having a reaction to the Keflex medication and was also in renal failure as her previous creatinine had been normal and today's creatinine was 2.19 with a BUN of 35. Due to the patient's acute renal failure, leukocytosis, persistent urinary tract infection with pyuria and above symptoms patient was admitted to the hospitalist service for further evaluation and treatment. # Urinary tract infection, present at the time of admission secondary to Escherichia coli pansensitive except for being intermediately susceptible to cephalothin. Active and partially treated with cephalexin 500 mg by mouth every 8 hours for 8 doses. - Zosyn was started in the emergency room and patient tolerated well. Therefore , we will continue today. However, her itching persist and we will need to switch to a quinolone antibiotic, as she would then have documented allergies to sulfa, cephalosporins and possibly penicillins. - We will check renal ultrasound to look for hydronephrosis or obstruction. # Drug reaction to cephalexin, presents time of admission. Active and ongoing with active diffuse erythematous rash and itching - Benadryl was needed today - We will switch Zosyn to Cipro this evening - Watch for further side effects under close observation. # Acute renal failure, presents time of admission. Active - Likely secondary to side effects of cephalexin. - The patient also likely has prerenal azotemia. - We will give IV hydration. # Leukocytosis, present admission. Active and secondary to above. - Continue to check daily CBC # Hypokalemia, present at the time of admission. Active and persistent - We will continue potassium in IV fluids - We have corrected magnesium which will make it easier to correct potassium over the next couple of days. - We will add oral potassium 3 times a day # Hypomagnesemia - We have corrected - Recheck magnesium as needed. # Gastroesophageal reflux disease, present times admission. Active - Continue proton pump inhibitor as at home # History of seizures - Continue clonazepam at home # History of hypertension - We will hold hydrochlorothiazide triamterene due to dehydration and renal failure. - We will monitor blood pressure very closely. # Obstructive sleep apnea present time of admission. Active - Patient to wear CPAP mask brought from home by her . #Anxiety and depression - Continue Zoloft as at home. Disposition: As this patient can use to have hypokalemia despite IV replacement patient will likely be here another 24-48 hours. Exam Vital Signs (Last) Date Time Temp Pulse Resp B/P Pulse Ox O2 Delivery O2 Flow Rate FiO2 10/16/16 10:56 36.8 83 20 164/75 90 Room Air Exam General: Patient is in no apparent distress lying supine in bed. She is no longer scratching. HEENT: Head is atraumatic and normocephalic. Eyes: Pupils are equally round and reactive to light and accommodation. Extraocular muscles are intact. Sclera are white, anicteric. Subconjunctival mucosa is pink. Ears and nose are unremarkable. Oropharynx: There is no mucosal lesions, there is no thrush, there is no pharyngitis. Neck: Is supple, there are no nodes, or masses or tenderness. Chest: Is clear to auscultation and percussion. There are no rales, rhonchi, wheezes or rubs. Heart: Rate, rhythm is regular. There is a grade 1 to 2/6 systolic ejection murmur heard best at the left sternal border with no rub or gallop. Abdomen: Good bowel sounds are present. Abdomen is soft, nontender, no organomegaly or masses were appreciated. Extremities: Are symmetrical and well perfused. There is no edema, there is no cellulitis, no rash. Her legs and arms are less erythematous. Neurologic: There are no focal neurological deficits. Cranial nerves II through XII are intact. There are no sensory or motor deficits. Psychiatric: Patients mood is calm and she shows no sign of agitation. Genital: Deferred Rectal: Deferred Test 10/14/16 12:00 10/15/16 04:41 10/16/16 04:52 Urine Color Dark yellow (YELLOW) Urine Appearance Hazy (CLEAR,HAZY) Urine pH 5.0 (5.0-8.0) Urine Specific [place] 1.025 (1.003-1.035) Urine Protein 30mg/dL (NEG,TRACE) Urine Glucose (UA) Negativemg/dL (NEGATIVE) Urine Ketones Tracemg/dL (NEGATIVE) Urine Occult Blood Negative (NEGATIVE) Urine Nitrite Negative (NEGATIVE) Urine Bilirubin Negative (NEGATIVE) Urine Urobilinogen Normalmg/dL (NORMAL) Urine Leukocyte Esterase Trace (NEGATIVE) Urine RBC 0-2/hpf (0-2) Urine WBC 6-10/hpf (0-5) Urine Epithelial Cells Moderate/hpf (NONE-MOD) Urine Crystals None seen (NONE SEEN) Urine Bacteria Few/hpf (NONE-FEW) Urine Hyaline Casts None/lpf (NONE) Urine Granular Casts None seen (NONE SEEN) Urine Waxy Casts None seen (NONE SEEN) Urine Red Blood Cell Casts None seen (NONE SEEN) Urine White Blood Cell Casts None seen (NONE SEEN) Urine Mucus None seen (None Seen) Urine Trichomonas None seen (NONE SEEN) Urine Yeast None (NONE SEEN) Urinalysis Comment None Urine Culture Reflexed Indicated Lipase 36U/L (13-60) Lactic Acid Level 0.8mmol/L (0.4-2.0) Thyroid Stimulating Hormone (TSH) 0.591uIU/mL (0.450-4.500) White Blood Count 3.7th/mm3 (3.8-10.1) Corrected White Blood Count th/mm3 (3.8-10.1) Red Blood Count 3.54mil/mm3 (3.90-5.20) Hemoglobin 10.2g/dL (12.0-15.6) Hematocrit 31.9% (35.0-46.0) Mean Corpuscular Volume 90.1fL (81-100) Mean Corpuscular Hemoglobin 28.8pg (27.0-35.0) Mean Corpuscular Hemoglobin Concent 32.0% (32.0-37.0) Red Cell Distribution Width 14.1% (12.3-15.4) Platelet Count 162bil/L (150-400) Neutrophils (%) (Auto) 65.8% (40-74) Lymphocytes (%) (Auto) 19.2% (14-46) Monocytes (%) (Auto) 9.5% (4-12) Eosinophils (%) (Auto) 4.9% (0-5) Basophils (%) (Auto) 0.3% (0-3) Sodium Level 142mEq/L (134-144) Potassium Level 4.1mEq/L (3.5-5.2) Chloride Level 112mEq/L (97-108) Carbon Dioxide Level 19mmol/L (18-29) Blood Urea Nitrogen 25mg/dL (8-27) Creatinine 1.11mg/dL (0.57-1.00) Estimat Glomerular Filtration Rate 69mL/min (>59) Glucose Level 92mg/dL (60-99) Calcium Level 8.0mg/dL (8.5-10.1) Magnesium Level 2.1mg/dL (1.6-2.6) Total Bilirubin 0.4mg/dL (0.0-1.2) Aspartate Amino Transf (AST/SGOT) 31U/L (0-50) Alanine Aminotransferase (ALT/SGPT) 21U/L (0-32) Alkaline Phosphatase 87U/L (25-165) Troponin T 0.010ug/L (0.0-0.011) Total Protein 5.3g/dL (6.4-8.4) Albumin 2.8g/dL (3.4-5.0) Microbiology Results Blood and urine cultures are pending Discharge Medications Discharge Medications Aspirin (Aspirin) 325 Mg Tablet 325 MG PO DAILY (Reported) Ciprofloxacin (Cipro) 500 Mg Tablet 500 MG PO BID Prescribed by: LUCY LOVE MD Clonazepam (Clonazepam) 1 Mg Tablet 1 MG PO HS (Reported) Cyanocobalamin/Folic Acid (Vitamin I46-Klfbk Acid Tablet) 1 Each Tablet 1 EACH PO DAILY (Reported) Cyclosporine (Restasis) 1 Each Droperette 2 EACH OP DAILY (Reported) Estrogens Conjugated (Premarin) 0.625 Mg Tablet 0.625 MG PO Q2DAY (Reported) Flaxseed Oil ([place]-3 Flaxseed Oil) 1,000 Mg Capsule 1,000 MG PO DAILY (Reported ) Gluc/Jeremiah-MSM#2/C/D3/Lalo/Born (Sbeszyxqzk-Walybzlmtfy-ACK Tab) 1 Each Tablet 2 EACH PO DAILY (Reported) Levothyroxine (Synthroid) 50 Mcg Tablet 50 MCG PO DAILY (Reported) Multivitamin (Multi Vitamin Daily) 1 Each Tablet 1 EACH PO DAILY (Reported) Omeprazole (Omeprazole) 40 Mg Capsule.dr 40 MG PO DAILY (Reported) Propranolol ER (Inderal LA) 160 Mg Capsule 160 MG PO DAILY (Reported) Sertraline HCl (Sertraline) 25 Mg Tablet 50 MG PO DAILY (Reported) Simvastatin (Simvastatin) 20 Mg Tablet 20 MG PO HS (Reported) Triamterene/HCTZ 37.5-25 mg (Triamterene/HCTZ 37.5-25 mg) 1 Each Capsule 0.5 PO DAILY (Reported) As needed Ketotifen Fumarate (Ketotifen Fumarate) 5 Ml Drops 5 ML OP BID PRN PRN allergy sx (Reported) Triamcinolone Acet (Triamcinolone Acetonide Cream) 1 Applic/0.25 Gm Cr 1 APPLIC EXT BID PRN PRN skin irritation (Reported) Followup Plan Disposition: Patient is being discharged home with her family. Her daughter is going to spend the night with her. Discharge Diet: Heart Healthy Discharge Activity: No restrictions (The patient may return to her usual activities gradually as tolerated.) Follow-up Provider: Carine Murrell MD Follow-up with PCP in: 1 week Time spent Time spent on discharging this patient was greater than 35 minutes, over half of which was involved in counseling and coordination of care. Low Love MD Oct 16, 2016 23:11
== END 2016-10-16 16:04 | disposition home or self-care (01) | DRG 683 ==
LOC: SED 11:03 → OSC 14:24
PROVIDERS: ADMIT Internal Medicine Infectious Disease; ATTEND Internal Medicine Infectious Disease
DX: N17.9 Acute kidney failure, unspecified (principal); N39.0 Urinary tract infection, site not specified; I10 Essential (primary) hypertension; G40.909 Epilepsy, unspecified, not intractable, without status epilepticus; K21.9 Gastro-esophageal reflux disease without esophagitis; B96.29 Other Escherichia coli [E. coli] as the cause of diseases classified elsewhere; Z16.19 Resistance to other specified beta lactam antibiotics; T36.1X5A Adverse effect of cephalosporins and other beta-lactam antibiotics, initial encounter; L29.9 Pruritus, unspecified; E83.42 Hypomagnesemia; G47.33 Obstructive sleep apnea (adult) (pediatric); E86.0 Dehydration; F41.8 Other specified anxiety disorders; Z79.82 Long term (current) use of aspirin

== ENCOUNTER → 2017-01-02 | Day surgery (SDC) | payer MEDICARE ==
[~2017-01-02] VITALS: Ht 167.6 cm; Wt 70.0 kg
[~2017-01-02] MED LIST changes: +Sodium Biphos-Phos 133 mL Enema RECTAL PRN; +Sodium Chloride LOK Flush 10 mL Syringe IV PRN; +fentaNYL-PF 50 mCg/mL 2 mL Inj IVPUSH PRN
[2017-01-02 14:36] VITALS: BP 130/65; PULSE 60; RESP 16; O2SAT 95
[2017-01-02] MEDS: 0.9% Sodium Chloride 1,000 ML IV SCH ×2 (16:29→16:54)
[2017-01-02 17:08] VITALS: BP 99/54; PULSE 56; RESP 10; O2SAT 96
[2017-01-02 17:15] VITALS: BP 118/57; PULSE 55; RESP 12; O2SAT 95
[2017-01-02 17:21] VITALS: BP 121/68; PULSE 61; RESP 12; O2SAT 98
--- NOTE | 2017-01-02 18:55 | ENDO ---
[address] [address] ENDOSCOPY PROCEDURE PATIENT: MIRIAN ALAN : 1940 MR#: [id number] ADMIT: 01/02/2017 JOB ID: [id number] PREPROCEDURE DIAGNOSIS: Gastric polyposis. POSTPROCEDURE DIAGNOSIS: Gastric fundic polyps, cecal polyp, ascending colon polyp, rectal polyp, sigmoid diverticulosis. PROCEDURE: Esophagogastroduodenoscopy with biopsies, colonoscopy with biopsies. ENDOSCOPIST: Cesar Faye MD ASSISTANTS: Na Luke MD, PGY4 MEDICATIONS: Versed 9 mg, fentanyl 150 mcg. INDICATIONS: The patient is a 76-year-old woman who has been undergoing regular gastric surveillance because of the initial finding of gastric polyposis in 2013. During her 1st procedure she was found to have approximately 30-40 gastric polyps which were hyperplastic fundic gland polyps. She was placed on proton pump inhibitor therapy and under surveillance has had diminishing numbers of gastric polyps. Her last upper endoscopy was in June 2015. Her last colonoscopy was in 2006, so she was due for colon screening as well. After discussion of the risks and benefits, she agreed to proceed. FINDINGS: Gastric polyposis had dramatically improved. There were two polyps removed which were probably in the range of 3 mm in diameter. I would estimate that there are somewhere between five and 10 additional quite tiny gastric polyps which were not removed. There was no significant gastritis, no duodenitis. The EG junction was at 40 cm from the incisors. In the colon there was a 2 mm cecal polyp, a 3 mm ascending colon polyp, and a 4-5 mm rectal polyp which were removed. There were a few scattered diverticula in the sigmoid colon. DESCRIPTION OF PROCEDURE: Procedural sedation was achieved. Preoperatively she underwent a lidocaine swish and swallow. She was connected to hemodynamic monitoring, pulse oximetry, and capnography. A bite block was introduced. The GIF Q180 gastroscope was introduced through the mouth and inserted to the level of the second portion of the duodenum under visualization. The scope was then withdrawn and retroflexed in the stomach. There was a grade 1 esophagogastric flap valve. As described above there were a few gastric polyps in the fundus, but the overall burden of polyposis had significantly improved. Two of the largest polyps were removed with cold forceps and sent for permanent pathology. The EG junction was present at 40 cm from the incisors and there was perhaps a very tiny sliding hiatal hernia. The esophagus was normal. The gastroscope was removed and the upper endoscopy was terminated. After digital rectal exam, the PCF H180AL colonoscope was inserted and advanced under visualization until the ileocecal valve and appendiceal orifice were visualized and photo documented. There was a 2 mm rounded polyp in the cecum which was removed with cold forceps. There was a small cluster of 2-3 mm polyps on one fold in the ascending colon, which were removed with cold forceps. There were a few scattered diverticula in the sigmoid colon. In the rectum, there was a slightly larger 4-5 mm pedunculated polyp which was removed with a hot snare and sent for permanent pathology. The scope was withdrawn after retroflexion and the procedure terminated. She tolerated the entire procedure well. RECOMMENDATIONS: I do not think that she needs to continue to undergo annual gastric screening. At this point I would recommend next upper endoscopy in three years. For colon screening, depending on biopsy results, she can likely undergo repeat colonoscopy in five years.
--- NOTE | 2017-01-07 12:43 | PATH ---
SURGICAL PATHOLOGY Attending Physician:Dora Pickering CASE STATUS: Signed Out PATIENT NAME: MIRIAN ALAN PID: [id number] : 1940 DATE COLLECTED:01/03/2017 20:14 SPECIMEN: 1: Stomach, Polyp, Biopsy 2: Colon, Polyp 3: Colon, Polyp 4: Rectum, Biopsy CLINICAL HISTORY: 1). GASTRIC POLYPS 2). CECAL POLYP 3). ASCENDING COLON POLYP 4). RECTAL POLYP FINAL DIAGNOSIS: 1. Gastric Polyps, Biopsies: Features of fundic gland polyp (two of two pieces). Negative for intestinal metaplasia, dysplasia or malignancy. 2. Cecal Polyp, Biopsy: Tubular adenoma. 3. Ascending Colon Polyp, Biopsy: Tubular adenoma. 4. Rectal Polyp, Biopsy: Tubular adenoma. ICD10: K31.7 D12.6 GROSS DESCRIPTION: The specimen is received in four formalin filled containers labeled with the patient's name. 1). The specimen is labeled "gastric polyps" and consists of 2 tiny portions of tissue which aggregate to 0.2 x 0.2 x 0.2 CM. The specimen is entirely submitted in cassette 1A. 2). The specimen is labeled "cecal polyp" and consists of a 0.2 x 0.1 x 0.1 CM portion of tissue which is entirely submitted in cassette 2A. 3). The specimen is labeled "ascending colon polyp" and consists of 2 portions of tissue which aggregate to 0.2 x 0.2 x 0.2 CM. The specimen is entirely submitted in cassette 3A. 4). Specimen is labeled "rectal polyp" and consists of a 0.5 x 0.5 x 0.4 CM portion of tissue which is entirely submitted in cassette 4A. 01/03/2017AZ ICD-9 CODES: CPT CODES: 1: 39276 2: 76760 3: 96052 4: 63876 Electronically Signed Out Lon Zabala MD, Ph.D. [facility] Pathology [facility] [address] [facility] [place] [address] Technical component performed at [facility], [facility] [address], [place], [address]
== END | disposition home or self-care (01) ==
LOC: END 02:30
PROVIDERS: ATTEND Student in an Organized Health Care Education/Training Program
DX: Z12.11 Encounter for screening for malignant neoplasm of colon (principal); D12.0 Benign neoplasm of cecum; D12.2 Benign neoplasm of ascending colon; D12.8 Benign neoplasm of rectum; K57.30 Diverticulosis of large intestine without perforation or abscess without bleeding; K31.7 Polyp of stomach and duodenum; G25.81 Restless legs syndrome; E78.5 Hyperlipidemia, unspecified; E03.9 Hypothyroidism, unspecified; G47.33 Obstructive sleep apnea (adult) (pediatric); I10 Essential (primary) hypertension; G47.00 Insomnia, unspecified; Z86.010 Personal history of colon polyps; Z86.73 Personal history of transient ischemic attack (TIA), and cerebral infarction without residual deficits; Z79.82 Long term (current) use of aspirin; Z79.899 Other long term (current) drug therapy
CPT/HCPCS: 43239; 45380; 45385; 99153; G0500; J2250; J3010; J7030